=== PATIENT | female | born 1965 | race Native Hawaiian/Other Pacific Islander ===

== ENCOUNTER 2018-03-23 17:17 | Outpatient (CLI) | payer OTHER, BC | END 2018-03-23 17:18 | disposition home or self-care (01) | LOC: RAD 17:17 ==

== ENCOUNTER 2018-05-23 08:15 | Outpatient (CLI) | payer OTHER, BC | END 2018-05-23 08:16 | disposition home or self-care (01) | LOC: RAD 08:15 ==